=== PATIENT | male | born 1995 | race Caucasian/White ===

== ENCOUNTER → 2017-03-04 | Outpatient (CLI) | payer BC, MEDICAID ==
[~2017-03-04] MED LIST: ACEC5L PO; AMOX250S91 PO; BAC5L PO; BACL-51 PEG; CEFP250L PO; CEPH250S35 PO; CLOB10TA PEG; CLOB20TA PO; CLON-298 PEG; CLON-329 PEG; CLON0.3T35 PEG; CLON1 PEG; CLON1 PO; CYCL10TA29 PEG; DIAZ2.5K4 RC; DIVA250T83 PEG; HYDEL PO; IBU200 PO; LAC100PT PEG; LEV500P IV; LEVAQUIN; LEVE100S14 PEG; LEVE750T74 PEG; LOR5 PO; LORA-1458 PEG; MIR PEG; VIMPAT PEG; [UNRECOGNIZED DRUG - CODE]; [UNRECOGNIZED DRUG - CODE] IV
--- NOTE | 2017-03-04 11:02 | RADIOLOGY IMAGING REPORT ---
FACILITY: [facility] PATIENT NAME: Kervin Mendez : 1995 MR: [id number] V: [id number] EXAM DATE: ORDERING PHYSICIAN: HERLINDA LUTZ TECHN[place] [facility] [place] M[place] : 1995 Visit/Account:[id number] Date of Sevice: 03/04/2017 LIVER HISTORY: Elevated liver enzymes, possible liver mass COMPARISON: CT abdomen pelvis February 12, 2008 FINDINGS: Gallbladder: Unremarkable; no stones or sludge. Liver: The liver parenchyma appears heterogeneous. This could be related to fatty infiltration or ot her infiltrative process. Common duct: Normal, five mm diameter. Pancreas: Partially obscured by bowel, visualized aspects unremarkable. Right kidney: Unremarkable as imaged. The right kidney measures 11.2 cm in length. Upper abdominal aorta and IVC: Patent. Ascites: None visualized. IMPRESSION: The liver appears heterogeneous which can be related to fatty infiltration other infiltrative process . Report Dictated By: Lee Ann Harper MD at 03/04/2017 10:43 AM Report E-Signed By: Lee Ann Harper MD at 03/04/2017 10:58 AM WSN:[id number]
== END ==
LOC: US 01:20
PROVIDERS: ATTEND Pediatrics Adolescent Medicine
DX: K76.0 Fatty (change of) liver, not elsewhere classified (principal)
CPT/HCPCS: 76705

== ENCOUNTER 2018-06-01 13:00 | Outpatient (RCR) | payer BC, MEDICAID ==
--- NOTE | 2018-03-09 14:43 | PT INITIAL EVALUATION ---
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 Kervin is an [facility] day resident and was being stretched by PT's who had a contract with the [facility] in [place]. They have cancelled the contract and Kervin needs PT intervention to keep him mobile. Kervin's [employer] aide, Oscar, relates he will get Kervin out in the community 4 week days and he does hippotherapy on Mondays. REHAB PROBLEM LIST: Impaired Cognition Decreased ROM Impaired Transfers Decreased Balance Decreased Function Decreased Mobility Decreased Gait PREVIOUS MEDICAL HISTORY: Quadriplegic CP, autism, seizure disorder, non-verbal. Last seizure was 11/05/16, with diagnosis of sepsis and transfer to [facility] from [facility] ED. OCCUPATION: Disabled, OBJECTIVE: Posture: Full manual support, feet together, knees flexed 25 degrees, R and posterior trunk lean. Supine: midline trunk and LE's. ROM: B ankle PROM DF 25 deg. below neutral, knees extension 25 degrees B. Hips PROM extension +10 deg., abduction 30 degrees. Special Tests: Modified Fely scale LE's 2, UE's 3. Kervin was agitated today. Psoas stretch with relaxation to 0 degrees, WB seated Achilles tendon stretching to 20 deg. B. Clonus 5 beats R, 6 beats L at the ankles. Mobility: Mod. assist of one supine/sit/stand with verbal and tactile cues. Gait: Toe and mid-foot walking with his aide either behind or to the side, helping to hold Kervin up, more tone L LE in flexor synergy creating apparent short L LE motion, B UE's in flexor synergies, holds items in his hands for comfort. Balance: No static stand. ASSESSMENT: Kervin Mendez presents to PT with the need to maintain his ambulatory mobility by stretching and exercise. He did fair with manual stretching today, with higher tone as this was a new setting for him. We'll work stretching and exercise here, instruct Oscar, his [employer] aide, in stretching and activities they can do in the community to keep Kervin mobile for as long as possible. 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 PLAN: Patient to be seen for Manual Therapy, Strengthening/condition, Range of Motion, Stretching, Gait Trg/Balance Trg, Home Exercise Program 1x/2 weeks for EDINSON >99 Thank you for this referral. If you have any questions, comments, or concerns about this report or plan, please contact me at . MTDD
[~2018-06-01 13:00] MED LIST changes: -CLON-298 PEG; +CLON-331 PEG
== END 2018-06-07 ==
LOC: PT 13:00
PROVIDERS: ATTEND Pediatrics Adolescent Medicine
DX: F29 Unspecified psychosis not due to a substance or known physiological condition (principal); R56.9 Unspecified convulsions; F84.0 Autistic disorder; G80.0 Spastic quadriplegic cerebral palsy
CPT/HCPCS: 97162

== ENCOUNTER 2018-09-07 13:00 | Outpatient (RCR) | payer BC, MEDICAID ==
--- NOTE | 2018-06-22 13:27 | PT PLAN OF CARE ---
Physician: Dr. 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 met PATIENT'S GOAL: Family's goal: Keep Kervin as ambulatory for as long as possible to keep him healthy. progressing Patient Compliance: Good Prognosis: Good Reasons for continuing therapy: This is our 3 month business office note: S: Kervin's aide, Oscar, relates Kervin is walking without as much leaning on him. Posture: mod. assist on one at the arm and waist for standing, ambulation. Gait: Kervin now ambulates with forefoot strike B, hip hiking instead of push off. Mobility: Min/mod. assist of one sit/stand, sometimes turning and some hip flexion to sit, other times leans like a 2x4" board and doesn't flex his hips or knees. ROM: As in March. Other: Kervin now will look a bright objects and will sometimes respond to noises. A/P: We have been working on less pusher syndrome walking and flexion in transfers versus ROM. Kervin Mendez is improving gait to reduce administrator health care facility function. If you agree, we'll continue at 1x/weeks to his 20 visits, and train [facility] personnel in exercises for there. Thank you. Dr. St[facility]ello [facility]
== END 2018-09-20 ==
LOC: PT 13:00
PROVIDERS: ATTEND Pediatrics Adolescent Medicine
DX: F29 Unspecified psychosis not due to a substance or known physiological condition (principal); R56.9 Unspecified convulsions; F84.0 Autistic disorder; G80.0 Spastic quadriplegic cerebral palsy